=== PATIENT | female | born 1950 | race Caucasian/White ===

== ENCOUNTER 2025-08-24 06:45 | Day surgery (SDC) | payer MEDICARE, OTHER ==
[2025-08-24] MEDS: Lactated Ringers 1,000 ML IV SCH (07:04)
[2025-08-24] MEDS ORDERED: Ondansetron 4 MG/2 ML SDV ONE (07:35)
[2025-08-24] MEDS ORDERED: dexmedeTOMIDine HCl 200 MCG/2 ML SDV ONE (07:35)
[2025-08-24] MEDS ORDERED: propofoL 500 MG/50 ML 50 ML ONE (07:35)
[2025-08-24] MEDS ORDERED: ePHEDrine 50 MG/ML SDV ONE (08:24)
[2025-08-24] MEDS ORDERED: fentaNYL 100 MCG/2 ML SDV ONE ×2 (09:06→09:39)
[2025-08-24] MEDS ORDERED: Lactated Ringers 1,000 ML ONE (09:29)
[2025-08-24] MEDS: Morphine 8 MG, EPINEPHrine 0.3 MG, Cefuroxime 750 MG, Ketorolac 30 MG, Sodium Chloride ... PRN (09:30)
[2025-08-24] MEDS ORDERED: Phenylephrine 1% 10 MG/ML SDV ONE (09:31)
[2025-08-24] MEDS ORDERED: Ropivacaine 0.5% 5 MG/ML 30 ML SDV ONE (09:46)
[2025-08-24] MEDS ORDERED: fentaNYL 100 MCG/2 ML SDV IVPUSH PRN (10:11)
[2025-08-24] MEDS ORDERED: Ondansetron 4 MG/2 ML SDV IVPUSH PRN (10:11)
[2025-08-24] MEDS: Acetaminophen/HYDROcodone 325-5 MG Tab PO PRN (11:28)
== END 2025-08-24 14:38 | disposition home or self-care (01) ==
LOC: JD.SDS 06:45
PROVIDERS: ATTEND Orthopaedic Surgery
DX: M17.12 Unilateral primary osteoarthritis, left knee (principal); I10 Essential (primary) hypertension; Z88.5 Allergy status to narcotic agent; Z88.8 Allergy status to other drugs, medicaments and biological substances; Z79.82 Long term (current) use of aspirin; Z79.899 Other long term (current) drug therapy; Z87.891 Personal history of nicotine dependence
CPT/HCPCS: 0055T; 27447; 64447; 73560; 97116; 97161; A9270; C1713; C1776; J0169; J0690; J0697; J1885; J2272; J2371; J2405; J2704; J2795; J3010; J3373; J7120; 01402; 99100; J3490